=== PATIENT | female | born 2000 | race Caucasian/White ===

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

== ENCOUNTER 2023-12-15 11:08 | Outpatient (CLI) | payer MEDICAID | END 2023-12-15 23:59 | disposition home or self-care (01) | LOC: RAD 11:08 | PROVIDERS: ATTEND Physician Assistant | DX: O43.891 Other placental disorders, first trimester (principal); Z3A.11 11 weeks gestation of pregnancy | CPT/HCPCS: 76801 ==